=== PATIENT | male | born 1985 | race Caucasian/White ===

== ENCOUNTER 2019-03-18 14:05 | Emergency (ER) | payer SELFPAY ==
[2019-03-18] MEDS ORDERED: Tetan/Diph/Pertus SYR(Tdap)* 0.5 ML SYR(BOOSTRIX) use SYR IM ONE (14:29)
--- NOTE | 2019-03-18 14:30 | ED ---
Upper Extremity Pain - HPI Summary HPI Summary: Patient is a 33-year-old male who presents to the emergency department for a right fourth digit finger amputation that occurred just prior to arrival. Patient states he was working on a well when a piece of metal fell onto his finger and amputated distal fourth digit of hand. Patient denies past medical history. Unaware of his last tetanus immunization. No other injuries were sustained. Symptoms are mild in severity. No current modifying factors. - History of Current Complaint Chief Complaint: EDExtremityUpper Stated Complaint: FINGER SEVERELY CUT PERF PT Time Seen by Provider: 03/18/19 14:19 Hx Obtained From: Patient - Allergies/Home Medications Allergies/Adverse Reactions: Allergies Allergy/AdvReac Type Severity Reaction Status Date / Time No Known Allergies Allergy Verified 03/18/19 14:14 PMH/Surg Hx/FS Hx/Imm Hx Previously Healthy: Yes Infectious Disease History: No Infectious Disease History: Denies: Traveled Outside the [place] in Last 30 Days - Family History Known Family History: Positive: Non-Contributory - Social History Occupation: Employed Full-time Lives: With Family Review of Systems Positive: Other - amputation to distal 4th digit of right hand All Other Systems Reviewed And Are Negative: Yes Physical Exam Triage Information Reviewed: Yes Vital Signs On Initial Exam: Initial Vitals Temp Pulse Resp BP Pulse Ox 95.0 F 89 17 116/87 99 03/18/19 14:12 03/18/19 14:12 03/18/19 14:12 03/18/19 14:12 03/18/19 14:12 Vital Signs Reviewed: Yes Appearance: Positive: Well-Appearing - Pt. sitting in chair in NAD. present. Skin: Positive: Warm, Dry Head/Face: Positive: Normal Head/Face Inspection Eyes: Positive: Normal, EOMI Neck: Positive: Supple Musculoskeletal: Positive: Other - Clean amputation noted just at the DIP joint of the right 4th digit. No active bleeding. Neurological: Positive: Normal, CN Intact II-III Psychiatric: Positive: Affect/Mood Appropriate Procedures - Procedure Summary Procedure Summary: Wound care: Wound was extensively irrigated with 500 cc of NS and cleaned with hibiclens. Bacitracin and sterile dressing placed. Diagnostics - Vital Signs Vital Signs Temp Pulse Resp BP Pulse Ox 03/18/19 14:12 95.0 F 89 17 116/87 99 - Laboratory Lab Statement: Any lab studies that have been ordered have been reviewed, and results considered in the medical decision making process. Course/Dx - Course Course Of Treatment: Pt. prsenting with traumatic amputation to distal left 4th digit just distal to the DIP joint. Given open fx pt. given a dose of IV ancef. Tetanus updated. Pt. in minimal pain at this time. Offered digital block for pain control but pt. declined. 1435: Case discussed with Dr. Poole, orthopedics. 1445: Pt.'s friend brought finger in on ice. Dr. Poole reviewed photos of amputated finger and given crush injury feels there is too much damage to re-attach. Pt. understands and agrees. Dr. Poole wound like wound cleaned and dressed and to f.u with Dr. Lane or Dr. Naidu in office for definitive care. I was unable to approximate any wound edges. Wound was extensively irrigated and clean and sterile dressing placed. Finger splint placed for comfort. Rx for lortab and keflex. I schedule pt. an apt. in ortho. clinic for tomorrow at 1315. Pt. understands and agrees with plan. - Diagnoses Differential Diagnosis/HQI/PQRI: Positive: Fracture (Closed) Provider Diagnoses: Finger amputation, traumatic Discharge - Sign-Out/Discharge Documenting (check all that apply): Patient Departure Patient Received Moderate/Deep Sedation with Procedure: No - Discharge Plan Condition: Good Disposition: HOME Prescriptions: Cephalexin CAP* [Keflex CAP*] 500 mg PO BID #20 cap HYDROcodone/ACETAMIN 5-325 MG* [[place] 5-325 TAB*] 1 tab PO Q6H PRN #12 tab MDD 4 tablets PRN Reason: Pain Patient Education Materials: Finger Amputation (ED) Referrals: Juancarlos Poole MD [Medical Doctor] - Additional Instructions: You have an appointment in the orthopedic office tomorrow, 03/19, at 1:15pm with a hand surgeon Keep dressing in place Medication as directed Return to ER if symptoms change or worsen - Billing Disposition and Condition Condition: GOOD Disposition: Home
[2019-03-18] MEDS ORDERED: ceFAZolin 1 GM ADVAN(*) 1 GM ADDV.VIAL IVPB ONE ×2 (14:33→14:56)
[2019-03-18] MEDS ORDERED: ceFAZolin 1 GM* X ONE DOSE (AddVan) IVPB ×2 (15:12)
[2019-03-18 16:38] VITALS: BP 130/82
== END 2019-03-18 16:38 | disposition home or self-care (01) ==
LOC: ED 14:05
DX: S68.124A Partial traumatic metacarpophalangeal amputation of right ring finger, initial encounter (principal); W26.8XXA Contact with other sharp object(s), not elsewhere classified, initial encounter
CPT/HCPCS: 73140; 90471; 90715; 96365; 96376; 99282; J0690

== ENCOUNTER → 2019-03-20 07:01 | Day surgery (SDC) | payer SELFPAY ==
--- NOTE | 2019-03-19 16:53 | HP ---
PREOPERATIVE HISTORY AND PHYSICAL: DATE OF ADMISSION/SURGERY: 03/20/19 DATE OF OFFICE VISIT/ENCOUNTER: 03/19/19 ATTENDING SURGEON: Lynne Naidu MD* (dictated by JASPER Rivas). PROCEDURE: Revision amputation, right ring finger. 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 He was seen at [facility], placed on an antibiotic and pain medication, and referred to Dr. Naidu for further evaluation and treatment. Dr. Naidu is recommending revision amputation and the patient has consented to proceed. PAST MEDICAL HISTORY: Unremarkable. PAST SURGICAL HISTORY: None. CURRENT MEDICATIONS: No regular medications. The patient is currently on: 1. An antibiotic. 2. Hydrocodone and acetaminophen. ALLERGIES: No known drug allergies. FAMILY MEDICAL HISTORY: Cancer, hypertension, stroke. 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 He denies tobacco use and recreational drug use. He drinks alcohol on occasion. REVIEW OF SYSTEMS: Negative for general, cephalic, cardiovascular, respiratory , GI, , other musculoskeletal, integumentary, endocrine, neurologic, and hematologic symptoms. Infectious Disease: Negative for history of MRSA, hepatitis C, HIV. PHYSICAL EXAMINATION GENERAL: Well-developed, well-nourished, 33-year-old male, in no acute distress. VITAL SIGNS: Height 6 feet 1 inch, weight 203 pounds, blood pressure 146/82. We did not get a pulse rate on Kai. HEENT: Normocephalic, atraumatic. Pupils are equal, round, and reactive to light and accommodation. Extraocular movements are intact. Throat is clear. NECK: Supple. No palpable lymph nodes. PULMONARY: Lungs are clear to auscultation bilaterally. No wheezes, rales, or rhonchi. CARDIOVASCULAR: Regular rate and rhythm. S1, S2. No murmurs, rubs, or gallops. No edema. ABDOMEN: Positive bowel sounds, soft, nontender. NEUROLOGIC: Alert and oriented x3. Cranial nerves II through XII are intact. Sensation is intact to light touch. MUSCULOSKELETAL: On exam of his right hand, he has a partial amputation of the ring finger at the level of distal aspect of the distal phalanx. Finger nail was gone. The wound is clean. There is no sign of infection. There is no drainage or erythema. He can actively flex and extend the DIP joint. IMPRESSION: Right ring finger partial amputation. PLAN: The patient is scheduled to undergo revision amputation right ring finger with Dr. Naidu on 03/20/19. He will return to the office 10 days postop for followup and suture removal. A prescription for [place] was e-scribed to the patient's pharmacy for postoperative pain management. JASPER RIVAS [id number]/[facility] #: [id number] JONO
[~2019-03-20 07:01] MED LIST: Acetaminophen TAB* 325 MG PO PRN; Buffered Lidocaine 1% SYRIN* 1 ML/SYRINGE INTRADERM ONE; Lactated Ringers 1000 ML Bag* 1,000 ML IV SCH; Lidocaine 1% INJ* 10 MG/ML 30 ML SDV ONE; Midazolam* 1 MG/ML 2 ML VIAL (2 MG) ONE; Naloxone* 0.4 MG/ML 1 ML VIAL IV PRN; Propofol* 10 MG/ML 20 ML BTL ONE; fentaNYL* 50 MCG/ML 2 ML VIAL (100 MCG VIAL) IV PRN; fentaNYL* 50 MCG/ML 2 ML VIAL (100 MCG VIAL) ONE; oxyCODONE/Acetamin 5/325 MG* TAB PO PRN
[2019-03-20 10:03] VITALS: BP 132/84
--- NOTE | 2019-03-20 12:21 | OP ---
CC: Dr. Naidu* OPERATIVE REPORT: DATE OF OPERATION: 03/20/19 - SDS DATE OF : [birth year] SURGEON: Lynne Naidu MD DIE MAKER [employer]LECTRONIC: JASPER Rivas ANESTHESIOLOGIST: Juancarlos Arreguin MD ANESTHESIA: Local MAC. PRE-OP DIAGNOSIS: Partial amputation of the right ring finger. POST-OP DIAGNOSIS: Partial amputation of the right ring finger. OPERATIVE PROCEDURE: Revision amputation, right ring finger with V-Y advancement flap. INDICATIONS: Kai is a 33-year-old male who injured his right ring finger when it got crushed between 2 hard things. He suffered a partial amputation of the distal aspect of the tip of his finger with a nail avulsion. He presents for revision amputation. ESTIMATED BLOOD LOSS: Zero. DESCRIPTION OF PROCEDURE: The patient was brought to the operating room, was given a sedation anesthetic, and a digital block with 10 cc of 1% plain lidocaine. Skin of his right hand and forearm was prepped and draped in the usual sterile fashion. The ring finger was exsanguinated with a Tourni-Cot and it was left up for the duration of the procedure. It was up for approximately 15 minutes. The wound was debrided with a rongeur and then two V-Y advancement flaps were created, one on either side, then were brought up and able to completely cover the end of the finger. They were sutured in place with 4-0 nylon suture, preserving the nail bed that remained and the bone that remained. The wound was irrigated and the skin edges reapproximated as mentioned above with 4-0 nylon suture. The nail fold was splinted with Xeroform and then the remainder of the wound was dressed with Xeroform, 4x4, Kerlix, and Coban. The patient tolerated the procedure well and was brought to the recovery room in good condition. [id number]/[facility] #: [id number] [facility]ITAL[facility]id
== END | disposition home or self-care (01) ==
LOC: OR 07:01
PROVIDERS: ATTEND Orthopaedic Surgery
DX: S68.624A Partial traumatic transphalangeal amputation of right ring finger, initial encounter (principal); W23.0XXA Caught, crushed, jammed, or pinched between moving objects, initial encounter; Y92.9 Unspecified place or not applicable
CPT/HCPCS: J2250; J2704; J3010